=== PATIENT | female | born 1955 | race Caucasian/White ===

== ENCOUNTER → 2016-10-23 | Outpatient (CLI) | payer OTHER ==
[~2016-10-23] MED LIST: ACET-654 PO; HYDRO50TAB PO; LORA0.5T PO; METO12TA PO; MYSO50TA PO; PROP10TA8 PO
--- NOTE | 2016-11-03 11:12 | REP ---
Clinical: Trauma. Technique: Two Panorex views of the mandible. Findings: The mandible appears intact and there is no evidence for acute fracture. The temporomandibular joints remains stable. No obvious osseous abnormality is appreciated. The remaining dentition appears relatively normal. Impression: Normal Panorex without evidence for osseous pathology or injury. Signed by Pradip Marie MD 11/03/2016 11:03 A
== END ==
LOC: M RAD 13:48
PROVIDERS: ATTEND Physician Assistant
DX: S00.83XA Contusion of other part of head, initial encounter (principal); X58.XXXA Exposure to other specified factors, initial encounter; Y93.9 Activity, unspecified; Y92.9 Unspecified place or not applicable; Y99.8 Other external cause status

== ENCOUNTER → 2016-10-23 | Outpatient (CLI) | payer OTHER ==
--- NOTE | 2016-10-24 02:20 | REP ---
Clinical: Trauma. Technique: AP, Isra, and and bilateral oblique views of the mandible . Findings: The osseous structures and joint spaces are intact and normal. There is no evidence for acute fracture or dislocation. Temporomandibular joints appear stable. Surrounding soft tissues are unremarkable. No subcutaneous emphysema or radiodense foreign body. Impression: Normal examination. No acute fracture or dislocation. Signed by Pradip Marie MD 10/24/2016 02:11 A
== END ==
LOC: M WUC 12:26
PROVIDERS: ATTEND Physician Assistant
DX: S00.83XA Contusion of other part of head, initial encounter (principal); X58.XXXA Exposure to other specified factors, initial encounter; Y93.9 Activity, unspecified; Y92.9 Unspecified place or not applicable; Y99.8 Other external cause status

== ENCOUNTER → 2017-06-25 | Outpatient (CLI) | payer OTHER | LOC: M RAD 10:13 | DX: H93.19 Tinnitus, unspecified ear (principal) ==

== ENCOUNTER → 2017-08-03 | Outpatient (CLI) | payer OTHER | LOC: M PLARAD 10:04 | DX: R90.82 White matter disease, unspecified (principal); H93.13 Tinnitus, bilateral | CPT/HCPCS: 70553 ==

== ENCOUNTER 2019-03-10 07:46 | Emergency (ER) | payer OTHER ==
[~2019-03-10] VITALS: Ht 162.6 cm; Wt 94.9 kg
[~2019-03-10 07:46] MED LIST changes: +HYDR-4274 PO; -HYDRO50TAB PO; +METO-346 PO; -METO12TA PO
[2019-03-10] MEDS ORDERED: ALPRAZolam 0.5 MG TAB PO ONE (08:15)
[2019-03-10 09:05] LABS: BLOOD UREA NITROGEN 16 MG/DL (7-18); CALCIUM LEVEL 9.2 MG/DL (8.8-10.2); CARBON DIOXIDE LEVEL 23 MEQ/L (21-32); CHLORIDE LEVEL 111 MEQ/L (98-107); CREATININE FOR GFR 0.89 MG/DL (0.55-1.30); GLOMERULAR FILTRATION RATE > 60.0 (>45); GLUCOSE, FASTING 112 MG/DL (70-100); POTASSIUM SERUM 4.7 MEQ/L (3.5-5.1); SODIUM LEVEL 142 MEQ/L (136-145)
[2019-03-10 09:22] LABS: HEMATOCRIT 41.8 % (36.0-47.0); HEMOGLOBIN 13.8 g/dl (12.0-15.5); MEAN CORPUSCULAR HEMOGLOBIN 30.7 pg (27.0-33.0); MEAN CORPUSCULAR VOLUME 93.1 fl (80.0-96.0); PLATELET COUNT, AUTOMATED 296 10^3/uL (150-450); RED BLOOD COUNT 4.49 10^6/uL (4.00-5.40); WHITE BLOOD COUNT 9.9 10^3/uL (4.0-10.0)
[2019-03-10 10:18] VITALS: BP 136/76
--- NOTE | 2019-03-10 16:32 | ECGEPIP ---
[facility] - ED Test Date: 2019-03-10 Pat Name: SUDHA RIVERA Department: Room: - Gender: Female Header Set Up Operator: : [id number] Requested By: Brandon Young Order Number: [id number] Reading MD: Lizabeth Nichols Measurements Intervals [place] Rate: 80 P: 43 LA: 141 QRS: 7 QRSD: 75 T: 34 QT: 373 QTc: 432 Interpretive Statements SINUS RHYTHM NONSPECIFIC T-WAVE ABNORMALITY INFERIOR INFARCT, AGE INDETERMINATE NO PRIOR Electronically Signed on 03-10-2019 16:32:33 EST by Lizabeth Nichols
== END 2019-03-10 10:27 | disposition home or self-care (01) ==
LOC: M ED 07:46
DX: F41.0 Panic disorder [episodic paroxysmal anxiety] (principal); G43.909 Migraine, unspecified, not intractable, without status migrainosus

== ENCOUNTER → 2022-11-09 | Outpatient (CLI) | payer MEDICARE, OTHER | LOC: M WHC 13:11 | PROVIDERS: ATTEND Nurse Practitioner Family | DX: Z12.31 Encounter for screening mammogram for malignant neoplasm of breast (principal) ==

== ENCOUNTER → 2022-11-09 | Outpatient (REF) | payer MEDICARE | LOC: M SFHCWAGY 17:16 | PROVIDERS: ATTEND Nurse Practitioner Family | DX: Z12.4 Encounter for screening for malignant neoplasm of cervix (principal) | CPT/HCPCS: 87624; G0123 ==